=== PATIENT | female | born 2000 | race Two or more races ===

== ENCOUNTER 2024-12-10 20:12 | Emergency (ER) | payer OTHER ==
[~2024-12-10] VITALS: Ht 160 cm; Wt 52.2 kg
[2024-12-10] MEDS ORDERED: LAMICTAL XR100 MG PO (20:37)
[2024-12-10] MEDS ORDERED: LITHOBID300 M1 (20:37)
[2024-12-10] MEDS ORDERED: XYZAL5 MG (20:38)
[2024-12-11] MEDS ORDERED: PROMETHAZINE HCL 50 MG/ML AMPUL IM STA (01:26)
[2024-12-11] MEDS ORDERED: TRAMADOL HCL 50 MG TABLET PO STA (01:28)
[2024-12-11] MEDS ORDERED: PROMETHAZINE HCL 50 MG/ML AMPUL IM ONE (01:31)
[2024-12-11] MEDS ORDERED: TRAMADOL HCL50 MG PO (03:22)
== END 2024-12-11 03:30 ==
LOC: ER 20:49
DX: H57.11 Ocular pain, right eye (principal); R51.9 Headache, unspecified; Z88.8 Allergy status to other drugs, medicaments and biological substances